=== PATIENT | male | born 1980 | race African-American/Black ===

== ENCOUNTER 2016-11-11 10:09 | Emergency (ER) | payer OTHER ==
[2016-11-11] MEDS ORDERED: DUONEB INH ONE ×2 (11:02)
[2016-11-11] MEDS ORDERED: CEFTRIAXONE 1 GM VIAL ONE (11:51)
== END 2016-11-11 13:00 | disposition home or self-care (01) ==
LOC: ER 10:09
DX: J18.9 Pneumonia, unspecified organism (principal)
CPT/HCPCS: 71010; 87804; 93005; 94640; 96372; 99285; J0696